=== PATIENT | male | born 1985 | race Caucasian/White ===

== ENCOUNTER → 2023-02-11 12:10 | Outpatient (CLI) | payer OTHER, SELFPAY ==
[2023-02-11 13:18] LABS: Alanine Aminotransferase 24 IU/L (<50); Albumin 4.6 g/dL (3.5-5.0); Albumin Globulin Ratio 1.5 (1.0-2.8); Alkaline Phosphatase 72 U/L (38-126); Aspartate Aminotransferase 28 IU/L (17-59); BUN Creatinine Ratio 13.1 (6-22); Bilirubin Total 0.9 mg/dL (0.2-1.3); Blood Urea Nitrogen 13 mg/dL (9-20); Carbon Dioxide 30 mmol/L (22-32); Chloride 102 mmol/L (98-107); Estimated Glomerular Filt Rate > 60 mL/min (>60); Globulin 3.1 g/dL (1.7-4.1); Glucose 85 mg/dL (70-100); HEMOLYSIS < 15 (0-50); Potassium 3.9 mmol/L (3.4-5.1); Sodium 139 mmol/L (137-145); Total Protein 7.7 g/dL (6.3-8.2)
[2023-02-11 13:34] LABS: Erythrocyte Sedimentation Rate 3 MM/HR (0-15)
[2023-02-11 13:49] LABS: TSH w/ Reflex to FT4 1.27 uIU/mL (0.47-4.68)
[2023-02-11 14:00] LABS: Rheumatoid Factor < 8.6 IU/mL (<12.0)
[2023-02-13 00:45] LABS: CCP Antibodies IgG/IgA 5 units (0-19)
[2023-02-14 16:36] LABS: ANA Screen, IFA Negative (.)
== END ==
PROVIDERS: PCP Family Medicine; Referring Provider Family Medicine; Visit Provider Family Medicine
DX: M25.50 Pain in unspecified joint (principal)
CPT/HCPCS: 36415; 80053; 84443; 85651; 86038; 86200; 86430